=== PATIENT | female | born 1995 | race Two or more races ===

== ENCOUNTER 2024-05-30 17:01 | Emergency (ER) | payer BC ==
[~2024-05-30] VITALS: Ht 172.7 cm; Wt 108.0 kg
[2024-05-30] MEDS ORDERED: KETOROLAC TROMETHAMINE 60 MG VIAL IM ONE (20:15)
== END 2024-05-30 23:31 | disposition home or self-care (01) ==
LOC: ER 17:03
DX: M25.572 Pain in left ankle and joints of left foot (principal)